=== PATIENT | male | born 1950 | race African-American/Black ===

== ENCOUNTER → 2020-10-10 | Outpatient (CLI) | payer MEDICARE ==
[~2020-10-10] MED LIST: GELATIN SPONGE SIZE 100. TP ONE; LIDOCAINE 1%/EPI 1:100,000 20 ML VIAL. INJ ONE; THROMBIN TOPICAL 5,000 UNIT VIAL. TP ONE
--- NOTE | 2020-10-10 12:12 | PDOC ---
SURGICAL PROGRESS NOTE DATE: 10/10/20 TIME: 12:08 Op Note: Surgeon......................................Jigar Pre and post op diag.....................Infected epidermaoid cyst Anesthesia.................................1% lidocaine with epi Procedure...................................I&D abscess back excision mass back Drains........................................1/45 inch pensose drain fluids..........................................none Bliood loss...................................25cc Consition ....................................satisfactory Labs Laboratory Tests Test 10/10/20 10:20 SARS-CoV-2 Antigen (Rapid) Negative (NEGATIVE) Laboratory Tests Test 10/10/20 10:20 SARS-CoV-2 Antigen (Rapid) Negative (NEGATIVE) SERGIO DONIS MD Oct 10, 2020 12:12
--- NOTE | 2020-10-10 12:16 | DISCH ---
DISCHARGE INSTRUCTIONS Condition on Discharge Condition on Discharge: Stable Activity After Discharge Activity Instructions for Disc: Avoid exertion Diet after Discharge Additional Diet Restrictions: resume pre op diet Wound Incision Care Other wound/incision instructi: change dressin tid and prn Follow-Up Follow up with: call and make appt to see me i10/15 or 10/16/2020 SERGIO DONIS MD Oct 10, 2020 12:15
--- NOTE | 2020-10-11 10:27 | PREOP HP ---
DATE OF SERVICE: 10/10/2020 HISTORY OF PRESENT ILLNESS: The patient is known to have had a mass in the back, which gets infected and recently got infected about 2 weeks ago, was about the size bigger than a baseball. He had a small incision made at an urgent care center and the material was drained and it was sutured back. He now still has a painful mass of the back and the sutures are in place, this was 2 weeks ago. PAST MEDICAL HISTORY: Shows he does have normal childhood diseases. He has had a kidney transplant for which he takes medication and also takes Plavix, which he has stopped taking for the last 2 or 3 days. He also had been on aspirin, which he stopped. He does take insulin for diabetes and hypertensive medication. ALLERGIES: The patient has no allergies to his knowledge. FAMILY HISTORY: Noncontributory. REVIEW OF SYSTEMS: Negative except for this painful mass of the back. It stopped draining, but it has gotten smaller than it was initially, but still is fairly large. PHYSICAL EXAMINATION: GENERAL: Shows an alert male, in no acute distress. HEAD, EYES, NOSE AND THROAT: Grossly normal. CHEST: Clear bilaterally to auscultation. HEART: I thought I heard a systolic murmur at the aortic area. He did have what I thought was an irregularly irregular heartbeat. He does not know about atrial fibrillation., but it seems as though that is where he has now. He has been told that by curb setter in the past but I do not have those records. He is up and about and doing otherwise well. BACK: The back did show a mass mostly on the right side of the lower back, there is a mass about 8-10 in diameter and is red and discolored. It is painful to touch, though it is not hot, it does have some warmth to it. The sutures that had been placed at the superior portion of this mass. It appears to be fluctuant. IMPRESSION: 1. Diabetes. 2. Renal failure. 3. Hypertension. 4. Abscess, back. PLAN: To drain this under local anesthesia. Now, he is on Plavix. We will have to probably put sutures around the edges. Stop the bleeding if necessary. Also he understands that we will have drain placed in this. We will proceed and they understand the risks and wished this to be done. They also understand that if this is in fact an infected epidermoid cyst, later on once all this infection is gone, would most likely have to have this removed. SERGIO DONIS MD DR: WILLY/jack JOB#: [id number] / [id number]
--- NOTE | 2020-10-14 23:27 | OP ---
DATE OF SURGERY: SURGEON: Waldemar Donis MD PREOPERATIVE DIAGNOSIS: Abscess of the back. POSTOPERATIVE DIAGNOSIS: Abscess of the back with infected mass. PROCEDURE: Drainage of abscess and excision mass of back. TECHNIQUE: Under local anesthesia, the area was properly prepped and draped in a routine fashion. The patient had this drained before about 2 weeks ago at another institution by another surgeon and the abscess was sutured. The sutures are still in place. The abscess he has now is about 8-10 cm thick and red. This incision was at the cephalad portion of the wound and at this time we anesthetized it, made it more inferiorly. We used a #11 blade to go in this, got pus out and then evacuated the contents. Cultures were taken. There was a mass there and Metzenbaum scissors were then used to dissect it free and completely remove it from the surrounding structures. It was done somewhat in piecemeal, but completely removed grossly. The resultant defect was inspected as we then applied pressure to control the bleeding, he had been on Plavix. He had renal transplant and was on therapy for that. We decided to put a drain in and as such put a Tilton drain after we removed the sutures from the superior portion of the previously open wound. We brought it through and through and sutured it in place using 2-0 silk superiorly and inferiorly. The drain was then placed, the bleeding was stopped, all the pus was removed and the mass was removed. The procedure was now terminated as sterile dressing was applied. The blood loss was probably 20-25 mL. Fluids given none. The drains were the quarter inch Tilton drain and the condition of the patient satisfactory as he is given instructions and returned to the holding area. WALDEMAR DONIS MD DR: WILLY/jack JOB#: [id number] / [id number]
--- NOTE | 2020-10-15 18:14 | PATHOLOGY ---
[facility] Accession Number: [id number] . 01 Material submitted: . back - EPIDERMOID CYST BACK . 01 Clinical history: . OPERATIVE PROCEDURE: INCISION AND DRAINAGE ABSCESS OF BACK . 02 Diagnosis: Back abscess, incision and drainage: - Segments of keratinaceous material and focal acute inflammatory exudate, consistent with ruptured epidermal inclusion cyst. (JPM:ludy; 10/15/2020) MBR 10/15/2020 1718 Local . 02 Electronically signed: . Phillip Velazquez MD, Pathologist NPI- [id number] . 01 Gross description: . The specimen is received in formalin, labeled "Adam Garza, epidermoid cyst-back". Received are multiple segments of pale branch friable tissue measuring 3.0 x 1.8 x 0.6 cm in aggregate dimensions. The specimen is submitted representatively in cassette A1. (CAA; 10/12/2020) QA/[facility] 10/15/2020 1354 Local . 02 Pathologist provided ICD-10: L02.212 . 02 CPT . 779866 Specimen Comment: A courtesy copy of this report has been sent to [phone], [phone] Specimen Comment: [id number] Specimen Comment: Report sent to / DR SANCHEZ Performed at: 01 [facility] [address], [place] [id number] MD Dread Jackson MD Phone: [phone] Performed at: 02 [facility] [address], [place] [id number] MD Phillip Velazquez MD Phone: [phone]
== END | disposition home or self-care (01) ==
LOC: LAB 10:00
PROVIDERS: ATTEND Specialist
DX: L02.212 Cutaneous abscess of back [any part, except buttock and flank] (principal); M79.89 Other specified soft tissue disorders; L72.0 Epidermal cyst; E11.9 Type 2 diabetes mellitus without complications; I10 Essential (primary) hypertension; N19 Unspecified kidney failure; Z79.84 Long term (current) use of oral hypoglycemic drugs; Z79.899 Other long term (current) drug therapy; Z20.822 Contact with and (suspected) exposure to COVID-19; Z88.8 Allergy status to other drugs, medicaments and biological substances
CPT/HCPCS: 10060; 11403; 87071; 87075; 87426; J3490; 87076; 88304

== ENCOUNTER → 2021-08-08 | Outpatient (CLI) | payer MEDICARE ==
--- NOTE | 2021-08-08 15:44 | RAD ---
EXAM: Soft tissue ultrasound, left lower extremity. HISTORY: Palpable mass left lateral calf. COMPARISON: None. FINDINGS: Sonographic evaluation of the site of palpable concern along the left lateral upper calf wa s performed. This reveals a hypoechoic well-circumscribed mass measuring 5.5 x 4.1 x 2.6 cm. There is internal perfusion on Doppler. No clear invasive characteristics are seen and it appears to be withi n the subcutaneous compartment. There is extensive surrounding subcutaneous edema. IMPRESSION: 1. A solid 5.5 cm well-circumscribed mass at the site of concern appears to be contained within the s ubcutaneous compartment. Malignancy is not excluded. MRI with and without contrast could further eval uate if resection is not already planned. Electronically signed by: Juan Daniel Falcon MD (08/08/2021 3:42 PM) [id number]
--- NOTE | 2021-08-09 11:54 | HP ---
DATE OF SERVICE: 08/09/2021 ADMIT DATE: 08/08/2021 HISTORY OF PRESENT ILLNESS: The patient has had for a few months a mass of the left lower leg, it is at the mid portion of the left lower leg laterally. He states it is getting larger and it does not particularly hurt. He has never had such a mass before and came to be seen. PAST MEDICAL HISTORY: Significant in that he has been on dialysis, but now has a renal transplant. He also has hypertension and diabetes for which he takes mediction and he was taking Plavix, but he has stopped all anticoagulants and the aspirin is now for about 5 to 6 days. The patient otherwise doing relatively well. ALLERGIES: He does not have allergies to his knowledge. FAMILY HISTORY: Noncontributory. REVIEW OF SYSTEMS: Shows he has increasing mass in the side of his left lower leg laterally. PHYSICAL EXAMINATION: GENERAL: Shows an alert male in no acute distress. HEAD, EYES, EARS, NOSE AND THROAT: Grossly normal. CHEST: Unremarkable. HEART: Had a systolic murmur at the aortic area. He did have an irregular heartbeat, which I think is irregularly irregular and is probably atrial fibrillation. He was told by restaurant service manager in the past that he may have had this. ABDOMEN: Grossly normal. EXTREMITIES: Remarkable in that his left leg, in the mid-proximal portion laterally he has a 5 cm mass, it is movable, soft and physical examination could not exactly tell if it was fluid or a solid mass. There was no tenderness as stated before, IMPRESSION: Mass of the left lower leg, diabetes, renal failure, hypertension, and possible cardiac arrhythmia. It should be noted that we did get a sonogram of the mass and I spoke to the radiologist and the mass is definitely a solid mass, it is not fluid or blood, it is a solid mass and suggested that it be removed. As such, we will plan to remove it under local anesthesia. WILLY/JHON DR: Unruly TID: [id number]
== END ==
LOC: US 15:07
PROVIDERS: ATTEND Specialist
DX: R22.42 Localized swelling, mass and lump, left lower limb (principal)
CPT/HCPCS: 76881

== ENCOUNTER → 2021-08-12 | Day surgery (SDC) | payer MEDICARE ==
[~2021-08-12] VITALS: Ht 167.6 cm; Wt 75.0 kg
[~2021-08-12] MED LIST changes: +ASPI-630 PO; +CARV6.2511 PO; +CHOL200027 PO; -GELATIN SPONGE SIZE 100. TP ONE; +INSU100V6 SQ; +INSU100V8 SQ; +LATA2.5D2 OU; +MAGN400C PO; +MYCO250C PO; +TACR1CAP5 PO; +TAMS0.4C97 PO; -THROMBIN TOPICAL 5,000 UNIT VIAL. TP ONE
[2021-08-12 11:11] VITALS: BP 161/79
[2021-08-12 11:23] LABS: BASO % 1 % (0-3); EOS # 0.5 x10^3/uL (0.0-0.7); EOS % 8 % (0-3); HEMATOCRIT 40.3 % (39.0-53.0); HEMOGLOBIN 12.7 g/dL (13.0-17.5); LYMPH # 1.4 x10^3/uL (1.0-4.8); LYMPH % 26 % (24-48); MEAN CORPUSCULAR HEMOGLOBIN 27 pg (25-35); MEAN CORPUSCULAR HGB CONC 32 g/dL (31-37); MEAN CORPUSCULAR VOLUME 87 fL (79-100); MONO # 0.6 x10^3/uL (0.0-1.1); MONO % 11 % (0-9); NEUT % 54 % (31-73); PLATELET COUNT 121 x10^3/uL (140-400); RED BLOOD COUNT 4.65 x10^6/uL (4.30-5.70); WHITE BLOOD COUNT 5.5 x10^3/uL (4.0-11.0)
[2021-08-12 11:34] LABS: CALCIUM 8.7 mg/dL (8.5-10.1); CREATININE 1.3 mg/dL (0.7-1.3); POTASSIUM 4.9 mmol/L (3.5-5.1)
[2021-08-12 11:39] LABS: PROTHROMBIN TIME PATIENT 14.6 SEC (11.7-14.0)
--- NOTE | 2021-08-12 11:41 | PREOP HP ---
DATE OF SERVICE: 08/09/2021 HISTORY OF PRESENT ILLNESS: The patient has had for a few months a mass of the left lower leg, it is at the mid portion of the left lower leg laterally. He states it is getting larger and it does not particularly hurt. He has never had such a mass before and came to be seen. PAST MEDICAL HISTORY: Significant in that he has been on dialysis, but now has a renal transplant. He also has hypertension and diabetes for which he takes mediction and he was taking Plavix, but he has stopped all anticoagulants and the aspirin is now for about 5 to 6 days. The patient otherwise doing relatively well. ALLERGIES: He does not have allergies to his knowledge. FAMILY HISTORY: Noncontributory. REVIEW OF SYSTEMS: Shows he has increasing mass in the side of his left lower leg laterally. PHYSICAL EXAMINATION: GENERAL: Shows an alert male in no acute distress. HEAD, EYES, EARS, NOSE AND THROAT: Grossly normal. CHEST: Unremarkable. HEART: Had a systolic murmur at the aortic area. He did have an irregular heartbeat, which I think is irregularly irregular and is probably atrial fibrillation. He was told by inspector clip on sunglasses in the past that he may have had this. ABDOMEN: Grossly normal. EXTREMITIES: Remarkable in that his left leg, in the mid-proximal portion laterally he has a 5 cm mass, it is movable, soft and physical examination could not exactly tell if it was fluid or a solid mass. There was no tenderness as stated before, IMPRESSION: Mass of the left lower leg, diabetes, renal failure, hypertension, and possible cardiac arrhythmia. It should be noted that we did get a sonogram of the mass and I spoke to the radiologist and the mass is definitely a solid mass, it is not fluid or blood, it is a solid mass and suggested that it be removed. As such, we will plan to remove it under local anesthesia. JACQUELINE DR: Unruly TID: [id number] FAISAL
[2021-08-12 11:49] LABS: ALBUMIN 3.4 g/dL (3.4-5.0); ALBUMIN/GLOBULIN RATIO 0.9 (1.0-1.7); TOTAL BILIRUBIN 0.5 mg/dL (0.2-1.0); TOTAL PROTEIN 7.4 g/dL (6.4-8.2)
--- NOTE | 2021-08-12 13:20 | DISCH ---
DISCHARGE INSTRUCTIONS Condition on Discharge Condition on Discharge: Stable Activity After Discharge Activity Instructions for Disc: Avoid exertion Diet after Discharge Additional Diet Restrictions: resume pre op diet Wound Incision Care Other wound/incision instructi: keep wound dry and change prn and elevte right leg above heart at all times Follow-Up Follow up with: call and make appt to see me in 7 days SERGIO DONIS MD Aug 12, 2021 13:20
--- NOTE | 2021-08-12 13:24 | PDOC ---
SURGICAL PROGRESS NOTE DATE: 08/12/21 TIME: 13:21 op Note: Surgeon...................................Jigar Pre and post op diag..................tumor right shank Anesthesia...............................1% lidocaine with epi Procedure.................................excision 7cm mass subcut and subfascial right lateral mid shank Bloos loss.................................50cc drains.....................................1/4 inch nancy Fluids......................................none condition..................................satisfactory Vital Signs Vital Signs Date Time Temp Pulse Resp B/P (MAP) Pulse Ox O2 Delivery O2 Flow Rate FiO2 08/12/21 11:11 61 20 99 Labs Laboratory Tests Test 08/12/21 10:40 White Blood Count 5.5 x10^3/uL (4.0-11.0) Red Blood Count 4.65 x10^6/uL (4.30-5.70) Hemoglobin 12.7 g/dL (13.0-17.5) Hematocrit 40.3 % (39.0-53.0) Mean Corpuscular Volume 87 fL (79-100) Mean Corpuscular Hemoglobin 27 pg (25-35) Mean Corpuscular Hemoglobin Concent 32 g/dL (31-37) Red Cell Distribution Width 14.0 % (11.5-14.5) Platelet Count 121 x10^3/uL (140-400) Neutrophils (%) (Auto) 54 % (31-73) Lymphocytes (%) (Auto) 26 % (24-48) Monocytes (%) (Auto) 11 % (0-9) Eosinophils (%) (Auto) 8 % (0-3) Basophils (%) (Auto) 1 % (0-3) Neutrophils # (Auto) 3.0 x10^3/uL (1.8-7.7) Lymphocytes # (Auto) 1.4 x10^3/uL (1.0-4.8) Monocytes # (Auto) 0.6 x10^3/uL (0.0-1.1) Eosinophils # (Auto) 0.5 x10^3/uL (0.0-0.7) Basophils # (Auto) 0.0 x10^3/uL (0.0-0.2) Prothrombin Time 14.6 SEC (11.7-14.0) Prothromb Time International Ratio 1.1 (0.8-1.1) Sodium Level 134 mmol/L (136-145) Potassium Level 4.9 mmol/L (3.5-5.1) Chloride Level 103 mmol/L (98-107) Carbon Dioxide Level 26 mmol/L (21-32) Anion Gap 5 (6-14) Blood Urea Nitrogen 33 mg/dL (8-26) Creatinine 1.3 mg/dL (0.7-1.3) Estimated GFR (Cockcroft-Gault) 66.0 BUN/Creatinine Ratio 25 (6-20) Glucose Level 174 mg/dL (70-99) Calcium Level 8.7 mg/dL (8.5-10.1) Total Bilirubin 0.5 mg/dL (0.2-1.0) Aspartate Amino Transf (AST/SGOT) 23 U/L (15-37) Alanine Aminotransferase (ALT/SGPT) 35 U/L (16-63) Alkaline Phosphatase 96 U/L (46-116) Total Protein 7.4 g/dL (6.4-8.2) Albumin 3.4 g/dL (3.4-5.0) Albumin/Globulin Ratio 0.9 (1.0-1.7) Laboratory Tests Test 08/12/21 10:40 White Blood Count 5.5 x10^3/uL (4.0-11.0) Red Blood Count 4.65 x10^6/uL (4.30-5.70) Hemoglobin 12.7 g/dL (13.0-17.5) Hematocrit 40.3 % (39.0-53.0) Mean Corpuscular Volume 87 fL (79-100) Mean Corpuscular Hemoglobin 27 pg (25-35) Mean Corpuscular Hemoglobin Concent 32 g/dL (31-37) Red Cell Distribution Width 14.0 % (11.5-14.5) Platelet Count 121 x10^3/uL (140-400) Neutrophils (%) (Auto) 54 % (31-73) Lymphocytes (%) (Auto) 26 % (24-48) Monocytes (%) (Auto) 11 % (0-9) Eosinophils (%) (Auto) 8 % (0-3) Basophils (%) (Auto) 1 % (0-3) Neutrophils # (Auto) 3.0 x10^3/uL (1.8-7.7) Lymphocytes # (Auto) 1.4 x10^3/uL (1.0-4.8) Monocytes # (Auto) 0.6 x10^3/uL (0.0-1.1) Eosinophils # (Auto) 0.5 x10^3/uL (0.0-0.7) Basophils # (Auto) 0.0 x10^3/uL (0.0-0.2) Prothrombin Time 14.6 SEC (11.7-14.0) Prothromb Time International Ratio 1.1 (0.8-1.1) Sodium Level 134 mmol/L (136-145) Potassium Level 4.9 mmol/L (3.5-5.1) Chloride Level 103 mmol/L (98-107) Carbon Dioxide Level 26 mmol/L (21-32) Anion Gap 5 (6-14) Blood Urea Nitrogen 33 mg/dL (8-26) Creatinine 1.3 mg/dL (0.7-1.3) Estimated GFR (Cockcroft-Gault) 66.0 BUN/Creatinine Ratio 25 (6-20) Glucose Level 174 mg/dL (70-99) Calcium Level 8.7 mg/dL (8.5-10.1) Total Bilirubin 0.5 mg/dL (0.2-1.0) Aspartate Amino Transf (AST/SGOT) 23 U/L (15-37) Alanine Aminotransferase (ALT/SGPT) 35 U/L (16-63) Alkaline Phosphatase 96 U/L (46-116) Total Protein 7.4 g/dL (6.4-8.2) Albumin 3.4 g/dL (3.4-5.0) Albumin/Globulin Ratio 0.9 (1.0-1.7) Justicifation of Admission Dx: Justifications for Admission: Justification of Admission Dx: Yes SERGIO DONIS MD Aug 12, 2021 13:24
--- NOTE | 2021-08-13 00:22 | OP ---
DATE OF SURGERY: 08/12/2021 SURGEON: Waldemar Kimball MD PREOPERATIVE DIAGNOSIS: Mass of the left gerardo. POSTOPERATIVE DIAGNOSIS: Mass of the left gerardo. ANESTHESIA: 1% lidocaine with epinephrine. PROCEDURE: Excision mass, which extended down to the fascia of the left gerardo, mid portion. INDICATIONS: The patient has had a mass of the left leg for about 3 months and enlarging and with no pain, came to me. He had a sonogram, which showed it to be a mass and not a cyst and as such, he came for surgery. He did not want to have general anesthesia and as such, we had to do this under local. TECHNIQUE: Under local anesthesia, the patient was properly prepped and draped in routine fashion. The mass has been in the mid portion of the left gerardo laterally. A longitudinal incision was made at a previously anesthetized area. We carried this down through the skin with a 15 blade and the mass was 7 cm with no margins. We carried this down through the skin into the subcutaneous. We saw the mass, it was not well encapsulated. We tried to go around that he had been on anticoagulants, but none lately and did have varicose veins of the area. As such, we got down to the mass slowly, use Metzenbaum scissors to go around it and the mass almost exploded, there was no actual integument around it and no firm capsule. We had to shell it out as best we could and got all the tissue out that we could see. Obviously, this was a contaminated site, but not with infection, but with tumor. The tumor was fleshy and had the consistency of some type of sarcoma. We slowly got the mass out. There was brisk bleeding as the mass did extend down to the fascia and muscle was exposed. We used cautery and on 2 or 3 occasions used suture ligatures to just try to slowly slow the bleeding of the muscle. Pressure was used also. The bleeding finally stopped, but after losing about 50 mL of blood. We then decided we will put a drain here. There was quite a bit of cavity there where the mass was and no fat or anything to fill it. We used a Roldan drain, sutured it superiorly and inferiorly with 2-0 Prolene and then cut the edges off. We took large 3-0 Prolene in a mattress fashion to close the wound over the drain. This having been done, there was no further bleeding and the sterile dressing was applied. The blood loss as stated before was about 50 mL. Fluids given see anesthesia sheet. No drains were used other than the quarter- inch [place] drain. Condition of the patient satisfactory as he has returned to the holding area. It should be noted that the patient did have lymphedema, swollen left leg, which also increased the bleeding and also the drainage. GAYATHRI DR: Unruly TID: [id number] MTDD
--- NOTE | 2021-08-16 14:07 | PATHOLOGY ---
[facility] Accession Number: [id number] . 01 Material submitted: . leg - LEFT LOWER LEG MASS-FS. Modifiers: left, lower . 01 Clinical history: . MASS L SHANK EXC. MASS L SHANK MASS L LOWER LEG LEFT LOWER LEG MASS: MALIGNANT, DIFFERENTIAL DIAGNOSIS INCLUDES CARCINOMA, SARCOMATED CARCINOMA 28G . 02 Frozen section diagnosis: . INTRAOPERATIVE CONSULTATION WITH FROZEN SECTION: (Dr. Phillip Velazquez) . Left lower leg mass: - Malignant. Differential diagnosis includes sarcoma and sarcomatoid carcinoma. . Results telephoned to Dr. Kimball in the outpatient area. Additional sections will be submitted. (JPM:agatha; 08/14/2021) . . FROZEN SECTION GROSS DESCRIPTION: Received fresh for frozen section and is designated "Left lower leg mass". This consists of multiple irregular segments of pink-branch to pale yellow gelatinous, fleshy-appearing tissue measuring up to 6.0 x 5.5 x 1.8 cm in aggregate. The largest segment measures up to 5.5 cm in greatest dimension. Sectioning reveals a pink-branch fleshy to focal yellow gelatinous cut surface. A transportation services representative portion of the specimen is submitted for frozen section as FSA1. The tissue remaining from frozen section is submitted for permanent section as A1. (JPM:mmambrosio; 08/14/2021) . . Frozen section performed at [facility], [address] [place] [address], [place] [address]. RIGO/ORTIZ . 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 SEE COMMENT. . (JPM:agatha/pit; 08/15/2021) QLM 08/16/2021 1311 Local . 02 Comment: Sections of the left lower leg mass excision reveal a high grade malignant neoplasm. Extensive areas of the tumor are composed of a proliferation of spindle shaped tumor cells within a myxoid stroma. The tumor cells have eosinophilic, focally vacuolated cytoplasm and possess mild to moderately pleomorphic nuclei containing prominent nucleoli. There is an associated delicate vasculature. There are also areas of the tumor which reveal a densely cellular, sheet-like proliferation of atypical cells lacking myxoid stroma. The tumor cells in these areas are larger and possess more abundant amounts of eosinophilic, focally vacuolated cytoplasm. The tumor cells in this area also show marked nuclear pleomorphism with scattered pleomorphic tumor giant cells. There are foci of tumor necrosis. There are mitotic figures present, some of which appear atypical. A panel of immunoperoxidase stains is obtained on A2 and yields the following results: . Vimentin: Tumor cells positive AE1/AE3: Tumor cells negative Cytokeratin IDANIA: Few tumor cells focally positive WILL: Tumor cells negative Smooth Muscle Actin: Tumor cells negative Desmin: Tumor cells negative S100: Tumor cells negative CD34: Tumor cells negative SOX10: Tumor cells negative . The morphologic and immunophenotypic findings are supportive of the diagnosis of a high grade malignant neoplasm with sarcomatoid features and myxoid changes. The differential diagnosis includes high grade myxofibrosarcoma and dedifferentiated liposarcoma. The case is being forwarded to [facility] for consultation, the results of which will be reported separately. The case is also examined by Dr. Ferreira, who concurs with the diagnosis. The results are reported to Dr. Kimball on 08/16/21 at 11:30 AM. . (JPM:agatha/rosalba; 08/15/2021) . Special stains performed: Immunoperoxidase stains for vimentin, AE1/AE3, cytokeratin IDANIA, WILL, smooth muscle Actin, desmin, S100, CD34, and SOX10 . 02 Electronically signed: . Phillip Velazquez MD, Pathologist NPI- [id number] . 01 Gross description: . PLEASE SEE FROZEN SECTION GROSS DESCRIPTION . A1: Frozen section tissue remnant, entirely submitted A2-A7: Additional sections, represented ([facility]; 08/12/2021) DKA/DKA 08/14/2021 1651 Local . 02 Pathologist provided ICD-10: C44.799 . 02 CPT . 830368, 701375, [id number], [id number] Specimen Comment: A courtesy copy of this report has been sent to [phone] Specimen Comment: [id number] Specimen Comment: Report sent to / DR SANCHEZ Performed at: 01 [facility] [address] [id number] MD Dread Jackson MD Phone: [phone] Performed at: 02 [facility] [address] [place], [place] [id number] MD Phililp Velazquez MD Phone: [phone]
== END | disposition home or self-care (01) ==
LOC: SURG 10:16
PROVIDERS: ATTEND Specialist
DX: R22.42 Localized swelling, mass and lump, left lower limb (principal); C44.799 Other specified malignant neoplasm of skin of left lower limb, including hip; I10 Essential (primary) hypertension; E11.9 Type 2 diabetes mellitus without complications; N40.0 Benign prostatic hyperplasia without lower urinary tract symptoms; Z79.82 Long term (current) use of aspirin; Z79.4 Long term (current) use of insulin; Z79.899 Other long term (current) drug therapy; Z79.01 Long term (current) use of anticoagulants; Z98.890 Other specified postprocedural states; Z91.041 Radiographic dye allergy status; Z88.8 Allergy status to other drugs, medicaments and biological substances
CPT/HCPCS: 11606; 36415; 80053; 85025; 85610; J3490; 88305; 88331; 88341; 88342